=== PATIENT | male | born 2000 | race Caucasian/White ===

== ENCOUNTER 2025-07-27 17:23 | Emergency (ER) | payer BC, SELFPAY ==
[~2025-07-27] VITALS: Ht 188 cm; Wt 81.8 kg
[2025-07-27 17:26] VITALS: BP 147/80; TEMP 99.7; O2SAT 94
[2025-07-27] MEDS ORDERED: KETO-204 PO (20:13)
[2025-07-27] MEDS: KETOROLAC 30 MG/ML 1 ML VIAL IM ONE (20:24)
[2025-07-27] MEDS: ONDANSETRON 4MG ORAL DISINTEGRATING TAB PO ONE (20:30)
== END 2025-07-27 20:53 | disposition home or self-care (01) ==
LOC: M ED 17:23
DX: S93.401A Sprain of unspecified ligament of right ankle, initial encounter (principal); Y92.9 Unspecified place or not applicable; Y93.9 Activity, unspecified; Y99.9 Unspecified external cause status; W01.0XXA Fall on same level from slipping, tripping and stumbling without subsequent striking against object, initial encounter; R22.41 Localized swelling, mass and lump, right lower limb; Z79.2 Long term (current) use of antibiotics
CPT/HCPCS: 73610; 96372; 99284; J1885